=== PATIENT | female | born 1980 | race Two or more races ===

== ENCOUNTER 2017-02-06 19:26 | Emergency (ER) | payer BC ==
[2017-02-06 20:21] LABS: Hematocrit 38 % (35-47); Hemoglobin 12.9 g/dl (12.0-16.0); Mean Corpuscular HGB Conc 34 g/dl (31-36); Mean Corpuscular Hemoglobin 32 pg (27-31); Mean Corpuscular Volume 95 fL (80-97); Mean Platelet Volume 8 um3 (7.4-10.4); Red Cell Distribution Width 13 % (10.5-15); White Blood Count 5.5 10^3/ul (3.5-10.8)
[2017-02-06 20:38] LABS: Albumin 4.3 g/dL (3.2-5.2); Calcium 8.8 mg/dL (8.6-10.3); EGFR African American 101.2 (>60); EGFR Non-African American 78.7 (>60); Globulin 2.6 g/dL (2-4); Magnesium 1.5 mg/dL (1.9-2.7); Potassium 3.4 mmol/L (3.5-5.0); Total Bilirubin 0.4 mg/dL (0.2-1.0); Total Protein 6.9 g/dL (6.4-8.9)
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
[2017-02-06 21:13] VITALS: BP 107/69
== END 2017-02-06 21:15 | disposition home or self-care (01) ==
LOC: ED 19:26
DX: R53.1 Weakness (principal); R11.0 Nausea; R06.02 Shortness of breath; R42 Dizziness and giddiness; F17.210 Nicotine dependence, cigarettes, uncomplicated
CPT/HCPCS: 36415; 80053; 83735; 85025; 93005; 99284